=== PATIENT | female | born 1995 | race Caucasian/White ===

== ENCOUNTER 2023-08-24 10:29 | Day surgery (SDC) | payer OTHER ==
[2023-08-21 12:40] VITALS: BMI 24.7
[2023-08-24] MEDS ORDERED: HYDROmorphone 0.5 MG/0.5 ML SYRINGE IVP PRN (10:41)
[2023-08-24] MEDS ORDERED: LACTATED RINGERS 1,000 ML IV SCH (10:41)
[2023-08-24] MEDS ORDERED: MIDAZOLAM 2 MG/2 ML VIAL IV PRN (10:41)
[2023-08-24] MEDS ORDERED: LIDOCAINE 1% (10MG/ML) FOR IV START INTRADERMA ONE (11:18)
[2023-08-24 11:26] VITALS: RESP 16
[2023-08-24] MEDS ORDERED: ONDANSETRON 4 MG/2 ML VIAL ONE (11:27)
[2023-08-24] MEDS ORDERED: DEXAMETHASONE SOD PHOSPHATE 4 MG/ML 1 ML VIAL IVP ONE (11:35)
[2023-08-24] MEDS ORDERED: ONDANSETRON 4 MG/2 ML VIAL IVP ONE ×2 (11:36→15:07)
[2023-08-24] MEDS ORDERED: MIDAZOLAM 2 MG/2 ML VIAL IVP ONE (12:07)
--- NOTE | 2023-08-24 12:50 | P.ANPRN ---
Procedure Note - Anesthesia - Nerve Block Performed Right Adductor Canal Single Date of Procedure: 08/24/23 Procedure Start Time: 12:06 Procedure Stop Time: 12:11 Indication: Acute Post-Operative Pain, Requested by Surgeon Sedation Type: Sedate with meaningful contact maintained Preparation: Sterile Prep Position: Supine Needle Gauge: 21 Ultrasound used to visualize needle placement: Yes Ultrasound used to observe medication spread: Yes Injectate: ([place] 0.5%, 10 mls wirh 4 mgs of decadron and 10 mls of NS) Resistance on Injection: Normal Image Stored and Saved: Yes Events: Uneventful and Well Tolerated
--- NOTE | 2023-08-24 12:51 | P.ANPRN ---
Procedure Note - Anesthesia - Nerve Block Performed Right Popliteal Single Date of Procedure: 08/24/23 Procedure Start Time: 12:15 Procedure Stop Time: 12:24 Indication: Acute Post-Operative Pain, Requested by Surgeon Sedation Type: Sedate with meaningful contact maintained Preparation: Sterile Prep Position: Left Lateral Needle Types: Facet Needle Gauge: 21 Ultrasound used to visualize needle placement: Yes Ultrasound used to observe medication spread: Yes Injectate: 0.5% Ropivacaine (see comment for volume) (30 mls with 4 mgs of Decadron) Blood Aspirated: No Pain Paresthesia on Injection Noted: No Resistance on Injection: Normal Image Stored and Saved: Yes Events: Uneventful and Well Tolerated
[2023-08-24] MEDS ORDERED: LIDOCAINE 1% INJ 10MG/ML (20 ML MDV) ONE (13:12)
[2023-08-24] MEDS ORDERED: MIDAZOLAM 2 MG/2 ML VIAL ONE (13:12)
[2023-08-24] MEDS ORDERED: fentaNYL (PF) 50 MCG/ML 2 ML AMP ONE (13:12)
[2023-08-24] MEDS ORDERED: DEXAMETHASONE SOD PHOSPHATE 4 MG/ML 1 ML VIAL ONE (13:12)
[2023-08-24] MEDS ORDERED: PROPOFOL 10 MG/ML 20 ML VIAL IV ONE (13:12)
[2023-08-24] MEDS ORDERED: ROPIVACAINE 5 MG/ML 30 ML VIAL ONE (13:12)
[2023-08-24] MEDS ORDERED: SODIUM CHLORIDE 0.9% (PF) 10 ML VIAL ONE (13:12)
--- NOTE | 2023-08-24 14:45 | P.OP ---
Date of Procedure: 08/24/23 Preoperative Diagnosis: 1. Hallux valgus right foot 2. Retained hardware right foot Postoperative Diagnosis: 1. Same 2. Same Procedure(s) Performed: 1. Bunionectomy by double osteotomy right foot 2. Removal deep hardware right foot Implants: Arthrex 4.0 mm MIS bunion screws 2 Arthrex 2.5 mm fully threaded headless screw 1 Anesthesia: GETA Surgeon: Ney Jiang Estimated Blood Loss (ml): 0 Pathology: none sent Condition: stable Disposition: PACU Description of Procedure: Prior to the patient being brought to the operating room, anesthesia administered a nerve block on the right lower extremity. Then the patient was brought into the operative room and placed on table in the supine position. Timeout was taken to confirm correct patient identifiers, correct laterality of surgery, and correct procedure. Once all staff in the room were in agreement with the timeout, the patient was induced and placed under general anesthesia. A well-padded tourniquet was placed on the left thigh The foot was then prepped and draped in usual manner. Under fluoroscopic visualization, metallic wires were used to identify anatomic landmarks on the foot. This included the first tarsometatarsal joint, the first metatarsal phalangeal joint, as well as the midline of the first metatarsal shaft. A marker was used to identify these on the skin. Under direct fluoroscopic visualization and initial guidewire was placed at the base of the first metatarsal and the medial aspect. It was then advanced distally and laterally until it penetrated the lateral cortex and the distal one third. Fluoroscopy the was used to make sure that the wire was and correct alignment both on AP and lateral views. Once that was established small stab incision was made over the skin at the medial aspect of the first metatarsal neck. An elevator was used to remove the periosteum dorsally and plantarly. A rotary bur was inserted on the medial side of the first metatarsal this was located approximately 20 mm from the first metatarsal phalangeal joint. The bur was advanced until it breach the lateral cortex and then with rotation movement the bur was used to cut through the first metatarsal dorsally and plantarly. Also the foot position was such that it was a straight dorsal to plantar cut. Once completed fluoroscopy was used to insert a distal traction and correction device which was then temporarily fixated the first metatarsal head. Then the correc tion device was turned to laterally displace the metatarsal head to correct the intermetatarsal angle. Once sufficient correction was obtained initial guidewire was advanced to capture the first metatarsal head towards the lateral aspect. A parallel guide was placed over the initial wire and then the second wire was then inserted through the guide and advanced through the first metatarsal into the metatarsal head. Fluoroscopy was used to confirm the proper placement of both wires, that they were parallel to the first metatarsal axis and were also at the midline. The more proximal wire was then advanced to the plantar aspect of the foot and then clamped with a hemostat. Small stab incision was made to the skin and then really was performed over the proximal wire into the first metatarsal head. Minimally invasive bunionectomy screw was then inserted over the guidewire and advanced until there was full purchase of the threads and that the bevel was parallel to the medial cortex of the first metatarsal. A second wire was then drilled and another MIS mini and the screw was inserted over the wire and advanced until a purchase the medial cortex of the first metatarsal on the bevel was also parallel. Final fluoroscopic imaging showed proper placement of both screws. There was maintained correction of the intermetatarsal angle. Both wires were then removed. Then attention directed the proximal phalanx of the great toe. Fluoroscopy was used to identify an area of the [place] osteotomy along the medial aspect of the proximal phalanx. A small stab incision was made through the skin and the elevator used to raise periosteum. The bur was inserted just proximal to the midpoint of the phalanx it was advanced to the lateral cortex but not through it. The bur was rotated dorsally and plantarly to perform the osteotomy. Then the osteotomy was reduced and then the bur was inserted again and the same process was used to remove more bone to allow for the angular correction. Once the osteotomy was completed a guidewire for a 2.0 fully threaded headless screw was inserted at the distal medial head of the proximal phalanx that was advanced in the proximal lateral direction across the osteotomy. Overdrill was performed and the screw was inserted across the wire and advanced until the threads engaged the cortex and providing compression across the osteotomy. A bone reduction bur was inserted near the first metatarsal osteotomy and that was used to reduce the medial shelf of the first metatarsal created by the shifting of the capital fragment. Final fluoroscopic imaging showed full correction of the deformity. All hardware was properly aligned. The wounds were thoroughly irrigated with antibiotic saline. Skin closure was done with 3- 0 nylon. A linear gauze and a dry sterile dressing applied to left foot. The patient tolerated above procedure and anesthesia well which recovery with vital signs stable.
[2023-08-24 15:03] VITALS: TEMP 97.5
[2023-08-24] MEDS ORDERED: HYDROcodone/APAP 5-325MG 1 EACH TAB ONE (16:03)
[2023-08-24] MEDS ORDERED: HYDROcodone/APAP 5-325MG 1 EACH TAB PO ONE (16:07)
[2023-08-24 16:13] VITALS: BP 112/78; PULSE 75
== END 2023-08-24 17:05 | disposition home or self-care (01) ==
LOC: OR 10:29
PROVIDERS: ATTEND Podiatrist
DX: T84.293A Other mechanical complication of internal fixation device of bones of foot and toes, initial encounter (principal); M20.11 Hallux valgus (acquired), right foot; Y83.8 Other surgical procedures as the cause of abnormal reaction of the patient, or of later complication, without mention of misadventure at the time of the procedure
CPT/HCPCS: 28299; 20680; J2250; J1100; J0690; J2405; 64445; 64447; 81025

== ENCOUNTER 2023-08-25 15:36 | Emergency (ER) | payer OTHER ==
--- NOTE | 2023-08-25 15:58 | ED ---
Lower Extremity Injury HPI - General Source: patient, RN notes reviewed Mode of arrival: ambulatory Limitations: no limitations <Renay Fox - Last Filed: 08/25/23 15:58> <Argelia Richardson - Last Filed: 08/26/23 03:52> - General Chief Complaint: Extremity Injury, Lower Stated Complaint: R foot surgery-Fall Time Seen by Provider: 08/25/23 15:58 - History of Present Illness Initial Comments: Patient is a 28-year-old female presented ER with chief complaint of left foot pain. Patient had a bunionectomy yesterday. Patient is endorsing 7 out of 10 pain currently. (Renay Fox) Note reviewed: This is a pleasant 28-year-old female who presents the emergency department with a chief complaint of left foot pain. She reports that she had a bunionectomy performed by Dr. Jiang yesterday. She is complaining of 7 out of 10 sharp pain. She does report that she tripped prior to arrival. She has been taking her medications as prescribed. Denies any fevers or chills. (Argelia Richardson) - Related Data Home Medications Medication Instructions Recorded Confirmed Cariprazine HCl [Vraylar] 1.5 mg PO DAILY@199908/21/23 08/24/23 Cephalexin [Keflex] 500 mg PO Q8HR 08/21/23 08/24/23 valACYclovir HCL [Valtrex] 1,000 mg PO DAILY 08/21/23 08/24/23 Previous Rx's Medication Instructions Recorded HYDROcodone/APAP 5-325MG [Paulina 1 tab PO Q6HR PRN #28 tab 08/24/23 5-325] Allergies Allergy/AdvReac Type Severity Reaction Status Date / Time Penicillins Allergy Anaphylaxis Verified 08/25/23 15:53 haloperidol [From Haldol] AdvReac INCONTINENCE Verified 08/25/23 15:53 OF URINE Review of Systems ROS Other: All systems not noted in ROS Statement are negative. <Renay Fox - Last Filed: 08/25/23 15:58> ROS Other: All systems not noted in ROS Statement are negative. <Argelia Richardson - Last Filed: 08/26/23 03:52> ROS Statement: Those systems with pertinent positive or pertinent negative responses have been documented in the HPI. Past Medical History Additional Past Medical History / Comment(s): ON ANTIBIOTIC FOR RECENT STREP B INFECTION- STATES HAS 3 DAYS LEFT-INSTRUCTED TO NOTIFY DR. JIANG. History of Any Multi-Drug Resistant Organisms: None Reported Additional Past Surgical History / Comment(s): WISDOM TEETH UNDER ANESTHESIA. RT BUNIONECTOMY-10 YRS AGO Past Anesthesia/Blood Transfusion Reactions: No Reported Reaction Past Psychological History: Bipolar, Depression Smoking Status: Former smoker, Vaper - Past Family History Mother Family Medical History: No Reported History <Renay Fox - Last Filed: 08/25/23 15:58> General Exam Limitations: no limitations <Renay Fox - Last Filed: 08/25/23 15:58> <Argelia Richardson - Last Filed: 08/26/23 03:52> - General Exam Comments Initial Comments: Visual Physical Exam Vital signs reviewed General: Well-appearing, nontoxic, no acute distress. Head: Normocephalic, atraumatic Eyes: PERRLA, EOMI ENT: Airway patent Chest: Nonlabored breathing Skin: No visual rash, normal skin tone Neuro: Alert and oriented 3 Musculoskeletal: No gross abnormalities (Renay Fox) General: Alert, in no acute distress Head: atraumatic normocephalic. Eyes PERRL, EOMI intact, mucous membranes moist Respiratory: Lungs clear to auscultation bilaterally Cardiovascular: Regular rate and rhythm Abdominal: Soft without guarding or rebound Extremities: Normal inspection with full range of motion and normal capillary refill, left foot with <2s capillary refill, no marked tenderness or swelling. Neuroogic: alert and oriented 3, CN II-XII intact, able to ambulate with steady gait Skin: warm dry and intact with normal color (Argelia Richardson) Course Vital Signs 08/25/23 15:51 Temperature 98.5 F Pulse Rate 86 Respiratory 16 Rate Blood Pressure 118/73 O2 Sat by Pulse 97 Oximetry Medical Decision Making <Renay Fox - Last Filed: 08/25/23 15:58> <Argelia Richardson - Last Filed: 08/26/23 03:52> - Medical Decision Making I performed the quick note portion of the exam. Electronically signed by Renay Fox PA-C (Renay Fox) Was pt. sent in by a medical professional or institution (, JA, SEISMOLOGY TEACHER, urgent care, hospital, or half-way...) When possible be specific @ -[No] Did you speak to anyone other than the patient for history (EMS, parent, family, police, friend...)? What history was obtained from this source @ -[No] Did you review nursing and triage notes (agree or disagree)? Why? @ -[I reviewed and agree with nursing and triage notes] Were old charts reviewed (outside hosp., previous admission, EMS record, old EKG, old radiological studies, urgent care reports/EKG's, half-way records)? Report findings @ -[No old charts were reviewed] Differential Diagnosis (chest pain, altered mental status, abdominal pain women, abdominal pain men, vaginal bleeding, weakness, fever, dyspnea, syncope, headache, dizziness, GI bleed, back pain, seizure, CVA, palpatations, mental health, musculoskeletal)? @ -[not applicable] EKG interpreted by me (3pts min.). @ -[As above] X-rays interpreted by me (1pt min.). @ Right foot x-ray reveals postsurgical changes, CT interpreted by me (1pt min.). @ -[None done] U/S interpreted by me (1pt. min.). @ -[None done] What testing was considered but not performed or refused? (CT, X-rays, U/S, labs)? Why? @ -[None] What meds were considered but not given or refused? Why? @ -[None] Did you discuss the management of the patient with other professionals (froy robertson i.e. , JA, SEISMOLOGY TEACHER, lab, RT, psych nurse, public health social worker, drilling field professional, teacher, correction officer reformatory, case fitter)? Give summary @ -[No] Was smoking cessation discussed for >3mins.? @ -[No] Was critical care preformed (if so, how long)? @ -[No] Were there social determinants of health that impacted care today? How? (Homelessness, low income, unemployed, alcoholism, drug addiction, transportation, low edu. Level, literacy, decrease access to med. care, snf, rehab)? @ -[No] Was there de-escalation of care discussed even if they declined (Discuss DNR or withdrawal of care, Hospice)? DNR status @ -[No] What co-morbidities impacted this encounter? (DM, HTN, Smoking, COPD, CAD, Cancer, CVA, ARF, Chemo, Hep., AIDS, mental health diagnosis, sleep apnea, morbid obesity)? @ -[None] Was patient admitted / discharged? Hospital course, mention meds given and route, prescriptions, significant lab abnormalities, going to OR and other pertinent info. @ -Charge. This is a 28-year-old female who presents emergency Department with right foot pain. Patient had a thorough history and physical exam performed. Right foot with less than 2 second capillary refill skin is pink and dry. No marked edema or erythema. Patient's x-rays negative. She was offered Tylenol with codeine starter pack. Discharged in stable condition. She was provided taxi service home. Return precautions discussed at length. Recommend close follow-up with Dr. Jiang in 1-2 days. Case discussed with Dr. Thomson, ED attending, Undiagnosed new problem with uncertain prognosis? @ -[No] Drug Therapy requiring intensive monitoring for toxicity (Heparin, Nitro, Insulin, Cardizem)? @ -[No] Were any procedures done? @ -[No] Diagnosis/symptom? @ -Right foot pain Acute, or Chronic, or Acute on Chronic? @ -Acute Uncomplicated (without systemic symptoms) or Complicated (systemic symptoms)? @ -Uncomplicated Side effects of treatment? @ -[No] Exacerbation, Progression, or Severe Exacerbation? @ -[No] Poses a threat to life or bodily function? How? (Chest pain, [place], [place], pneumonia, PE, COPD, DKA, ARF, appy, cholecystitis, CVA, Diverticulitis, Homicidal, Suicidal, threat to staff... and all critical care pts) @ -Low likelihood (Argelia Richardson) Disposition <Renay Fox - Last Filed: 08/25/23 15:58> Is patient prescribed a controlled substance at d/c from ED?: No Time of Disposition: 18:49 <Argelia Richardson - Last Filed: 08/26/23 03:52> Clinical Impression: Foot pain Disposition: HOME SELF-CARE Condition: Stable Instructions (If sedation given, give patient instructions): Ankle Sprain (ED) Referrals: Benedicto Vieira MD [Primary Care Provider] - 1-2 days Ney Jiang DPM [Doctor of Osteopathic Medicine] - 1-2 days
[2023-08-25 16:09] VITALS: BP 118/73; PULSE 86; RESP 16; TEMP 98.5
--- NOTE | 2023-08-25 16:16 | XR ---
Right foot. HISTORY: Pain. Status post surgery of the right big toe and first metatarsal and 08/24/2023 COMPARISON: None 3 views the right foot were obtained. There are postsurgical changes involving the first metatarsal and proximal phalanx of the big toe. Ma lalignment cannot be determined lack of prior study for comparison. Remaining osseous structures are intact without fracture or dislocation. IMPRESSION: Post surgical changes involving the first metatarsal and big toe as described above. There is no prio r study available to evaluate for acute changes
[2023-08-25] MEDS ORDERED: ACET/COD 300 MG/30 MG STARTER PACK 6 TAB BTL PO STA (19:05)
== END 2023-08-25 19:13 | disposition home or self-care (01) ==
LOC: EC 15:36
DX: M79.672 Pain in left foot (principal); F31.9 Bipolar disorder, unspecified; Z79.899 Other long term (current) drug therapy; F17.290 Nicotine dependence, other tobacco product, uncomplicated; Z88.0 Allergy status to penicillin; Z88.8 Allergy status to other drugs, medicaments and biological substances
CPT/HCPCS: 99283